=== PATIENT | female | born 1990 | race Caucasian/White ===

== ENCOUNTER 2016-12-26 22:29 | Emergency (ER) | payer SELFPAY ==
[~2016-12-26] VITALS: Ht 149.9 cm; Wt 67.4 kg
[2016-12-26 22:50] VITALS: Ht 149.9 cm; Wt 67.4 kg
[2016-12-26] MEDS ORDERED: ACETAMINOPHEN 500 MG TAB PO STA (23:23)
--- NOTE | 2016-12-26 23:27 | ERD ---
ER Documentation Chief Complaint Date/Time DATE: 12/26/16 TIME: 23:25 Chief Complaint pt reports spotting that started today. HPI This is a a 26-year-old female who presents to the emergency department today complaining of vaginal spotting that started today. Patient states she is 6 weeks . States she has some lower abdominal pain. Denies any nausea or vomiting fevers or chills ROS All systems reviewed and are negative except as per history of present illness. Medications Home Meds Active Scripts Acetaminophen* (Tylophen*) 500 Mg Capsule, 1 CAP PO Q6H Y for PAIN AND OR ELEVATED TEMP, #30 CAP Prov:LISA CHRIS PA-C 12/27/16 PMhx/Soc Medical and Surgical Hx: pt denies Medical Hx, pt denies Surgical Hx Hx Alcohol Use: No Hx Substance Use: No Hx Tobacco Use: No Smoking Status: Never smoker Physical Exam Vitals Vital Signs Date Time Temp Pulse Resp B/P Pulse Ox O2 Delivery O2 Flow Rate FiO2 12/26/16 22:50 98.1 96 18 120/68 98 Physical Exam Const: No acute distress Head: Atraumatic Eyes: Normal Conjunctiva ENT: Normal External Ears, Nose and Mouth. Neck: Full range of motion..~ No meningismus. Resp: Clear to auscultation bilaterally Cardio: Regular rate and rhythm, no murmurs Abd: Soft, mild suprapubic tenderness non distended. Normal bowel sounds. No right lower quadrant pain. No left lower quadrant pain. No tenderness to McBurney's. Skin: No petechiae or rashes Neur: Awake and alert Psych: Normal Mood and Affect Result Diagram: 12/26/16 7686 Results 24 hrs Laboratory Tests Test 12/26/16 23:52 12/26/16 23:55 Urine Bacteria OCCASIONAL Urine Bilirubin NEGATIVE Urine Clarity CLEAR Urine Color LT. YELLOW Urine Glucose NEGATIVE% Urine Hemoglobin 2+ Urine Ketones NEGATIVE Urine Leukocyte Esterase NEGATIVE Urine Microscopic RBC 5-10/HPF Urine Microscopic WBC 0-2/HPF Urine Nitrite NEGATIVE Urine Specific Stout 1.020 Urine Squamous Epithelial Cells FEW Urine Total Protein NEGATIVE Urine Urobilinogen 1.0 E.U./dL Urine pH 6.5 Basophils # 0.110^3/ul Basophils % 0.5% Beta HCG, Quantitative 3921.1mIU/ml Eosinophils # 0.210^3/ul Eosinophils % 1.4% Hematocrit 39.3% Hemoglobin 13.7g/dl Lymphocytes # 3.910^3/ul Lymphocytes % 33.5% Mean Corpuscular Hemoglobin 31.7pg Mean Corpuscular Hemoglobin Concent 34.7g/dl Mean Corpuscular Volume 91.2fl Mean Platelet Volume 9.7fl Monocytes # 0.710^3/ul Monocytes % 5.9% Neutrophils # 6.810^3/ul Neutrophils % 58.7% Nucleated Red Blood Cells # 0.010^3/ul Nucleated Red Blood Cells % 0.0/100WBC Platelet Count 83715^3/UL Red Blood Count 4.3110^6/ul Red Cell Distribution Width 13.1% White Blood Count 11.610^3/ul Current Medications Medications (Trade) Dose Ordered Sig/Miriam Route PRN Reason Start Time Stop Time Status Last Admin Dose Admin Acetaminophen (Tylenol Tab) 500 mg ONCE STAT PO 12/26/16 23:23 12/26/16 23:25 DC 12/27/16 00:21 DIAGNOSTIC IMAGING REPORT Patient: VIANEY WONG : 1990 Age: 26 Sex: F MR #: [id number] DOS: 12/27/16 0000 Ordering MD: LISA CHRIS PA-C Location: [facility] Room/Bed: PROCEDURE: Obstetrical ultrasound. CLINICAL INDICATION: Vaginal bleeding. TECHNIQUE: Multiple sonographic images of the pelvis were obtained utilizing an endovaginal technique. The images were reviewed on a PACS workstation. COMPARISON: 12/26/2016. FINDINGS: No abnormal uterine mass is identified. The endometrial echo complex is homogeneous and measures 19.2 mm. No intrauterine is identified. There is no evidence for free fluid. The right ovary has a normal echotexture and measures 2.7 x 1.8 x 2.1 cm. The left ovary has a normal echotexture and measures 2.8 x 1.8 x 2.0 cm. There is normal flow to both ovaries. No adnexal masses are identified. IMPRESSION: Thickened endometrium with no intrauterine identified. Clinical beta- hCG correlation and follow-up is recommended. .Mandeep Haddad MD, MD Date Time Electronically viewed and signed by .Mandeep Haddad MD, MD on 12/27/2016 00:58 .T/ CC: LISA CHRIS PA-C Procedures/MDM This is a 26-year-old female who presents to the emergency department today complaining of vaginal spotting that started today. Patient indicates she is 6 weeks . Given the patient's complaints and did obtain a full OB workup Laboratory work shows a very mildly elevated white blood cell count. She is not anemic. Platelets are within normal limits. UA is negative for infection Rh status O+ Beta quant hCG 3 9-1.1 Ultrasound shows a thickened endometrium with no intrauterine identified. There is normal flow to both ovaries. There is no evidence for free fluid. There is no abnormal uterine mass. Clinical beta hCG correlation and follow-up is recommended. Patient symptoms at this time is consistent with early failed versus early normal versus ectopic . I have explained this to the patient. I have explained to her that she needs to get a repeat beta quant in 48 hours. Patient does not have an appointment with her [facility] for her first appointment until January and therefore I have explained to the patient that she may return here to the emergency department for a repeat beta quant. I have explained to the patient she may continue to have vaginal spotting. Patient was given Tylenol here in the emergency department. I will give her a prescription for home. At this time the patient is stable for discharge and outpatient management. Patient should follow up with their PCP in the next 1-2 days. They may return to the emergency department sooner for any persistent or worsening of symptoms. Patient understood and agreed with the plan. Departure Diagnosis: Primary Impression: Vaginal bleeding before 22 weeks gestation Condition: Fair LISA CHRIS PA-C Dec 26, 2016 23:26
[2016-12-27 00:15] LABS: BASOPHIL # 0.1 10^3/ul (0.0-0.1); BASOPHILS % 0.5 % (0.0-2.0); EOSINOPHILS # 0.2 10^3/ul (0.0-0.5); EOSINOPHILS % 1.4 % (0.0-7.0); HEMATOCRIT 39.3 % (37.0-47.0); HEMOGLOBIN 13.7 g/dl (12.0-16.0); LYMPHOCYTES # 3.9 10^3/ul (0.8-2.9); LYMPHOCYTES % 33.5 % (15.0-51.0); MEAN CORPUSCULAR HEMOGLOBIN 31.7 pg (29.0-33.0); MEAN CORPUSCULAR HGB CONC 34.7 g/dl (32.0-37.0); MEAN CORPUSCULAR VOLUME 91.2 fl (82.0-101.0); MEAN PLATELET VOLUME 9.7 fl (7.4-10.4); MONOCYTE # 0.7 10^3/ul (0.3-0.9); MONOCYTES % 5.9 % (0.0-11.0); NEUTROPHIL # 6.8 10^3/ul (1.6-7.5); NEUTROPHILS % 58.7 % (39.0-77.0); PLATELET COUNT 250 10^3/UL (140-440); RED BLOOD COUNT 4.31 10^6/ul (4.20-5.40); RED CELL DISTRIBUTION WIDTH 13.1 % (11.5-14.5); UNCORRECTED WBC 11.6 10^3/ul (4.8-10.8); WHITE BLOOD COUNT 11.6 10^3/ul (4.8-10.8)
[2016-12-27 00:18] LABS: CONDITION 1
--- NOTE | 2016-12-27 00:18 | RADRPT ---
PROCEDURE: US OB. CLINICAL INDICATION: Positive , vaginal bleeding TECHNIQUE: Transabdominal views of the pelvis are available for review. COMPARISON: No prior studies are available for comparison. FINDINGS: Uterus: Grossly normal. There is no evidence of myometrial mass. Endometrial cavity: No intrauterine is identified. Right ovary / adnexa: The ovary is not visualized. There is no evidence of adnexal mass Left ovary/adnexa: Ovarian size is normal measuring 2.9 x 2 x 1.8 cm with no evidence of ovarian or adnexal mass. Normal blood flow seen on Doppler interrogation. Cul-de-sac: No evidence of free fluid. RPTAT:HJJR IMPRESSION: Limited transabdominal exam without intrauterine identified. Ectopic is not exc luded, but there are no suspicious findings at this time. Correlation with serial beta HCGs is wilmer huston with followup as clinically indicated. Physician Angeles Date Time Electronically viewed and signed by Physician Angeles on 12/27/2016 00:18 JR/
[2016-12-27 00:35] LABS: ADD UMIC YES; URINE BILIRUBIN (Dip) NEGATIVE (NEGATIVE); URINE BLOOD (Dip) 2+ (NEGATIVE); URINE COLOR LT. YELLOW (YELLOW); URINE GLUCOSE (Dip) NEGATIVE (NEGATIVE); URINE KETONES (Dip) NEGATIVE (NEGATIVE); URINE LEUKOCYTE ESTERASE (Dip) NEGATIVE (NEGATIVE); URINE NITRITE (Dip) NEGATIVE (NEGATIVE); URINE TOTAL PROTEIN (Dip) NEGATIVE (NEGATIVE); URINE UROBILINOGEN (Dip) 1.0 E.U./dL (0.1-1.0)
[2016-12-27 00:47] LABS: BACTERIA,URINE OCCASIONAL; SQUAMOUS EPITHELIAL CELL,UR FEW
--- NOTE | 2016-12-27 00:58 | RADRPT ---
PROCEDURE: Obstetrical ultrasound. CLINICAL INDICATION: Vaginal bleeding. TECHNIQUE: Multiple sonographic images of the pelvis were obtained utilizing an endovaginal techn ique. The images were reviewed on a PACS workstation. COMPARISON: 12/26/2016. FINDINGS: No abnormal uterine mass is identified. The endometrial echo complex is homogeneous and measures 19 .2 mm. No intrauterine is identified. There is no evidence for free fluid. The right ovary has a normal echotexture and measures 2.7 x 1. 8 x 2.1 cm. The left ovary has a normal echotexture and measures 2.8 x 1.8 x 2.0 cm. There is norm al flow to both ovaries. No adnexal masses are identified. IMPRESSION: Thickened endometrium with no intrauterine identified. Clinical beta-hCG correlation and follow-up is recommended. .Mandeep Haddad MD, MD Date Time Electronically viewed and signed by .Mandeep Haddad MD, MD on 12/27/2016 00:58 .T/
[2016-12-27] MEDS ORDERED: ACET500C5 PO (01:41)
[2016-12-27 01:56] VITALS: BP 114/74; PULSE 73; RESP 17; TEMP 98.4
== END 2016-12-27 01:56 | disposition home or self-care (01) ==
LOC: FTE 22:29
DX: O20.9 Hemorrhage in early pregnancy, unspecified (principal); Z3A.01 Less than 8 weeks gestation of pregnancy
CPT/HCPCS: 36415; 76801; 76817; 81001; 81003; 84702; 85025; 86900; 86901

== ENCOUNTER 2017-01-05 14:18 | Inpatient (IN) | payer SELFPAY ==
[~2017-01-05] VITALS: Ht 149.9 cm; Wt 66.0 kg
[~2017-01-05 14:18] MED LIST: ACET500C5 PO
[2017-01-05 14:28] VITALS: Ht 149.9 cm; Wt 66.0 kg
[2017-01-05 15:14] LABS: ADD SCAN DIFF NO
[2017-01-05 15:17] LABS: BASOPHILS % 0.6 % (0.0-2.0); EOSINOPHILS # 0.4 10^3/ul (0.0-0.5); EOSINOPHILS % 5.5 % (0.0-7.0); HEMATOCRIT 38.6 % (37.0-47.0); HEMOGLOBIN 12.8 g/dl (12.0-16.0); LYMPHOCYTES # 1.8 10^3/ul (0.8-2.9); LYMPHOCYTES % 28.3 % (15.0-51.0); MEAN CORPUSCULAR HEMOGLOBIN 30.8 pg (29.0-33.0); MEAN CORPUSCULAR HGB CONC 33.2 g/dl (32.0-37.0); MEAN CORPUSCULAR VOLUME 92.8 fl (82.0-101.0); MEAN PLATELET VOLUME 11.3 fl (7.4-10.4); MONOCYTE # 0.9 10^3/ul (0.3-0.9); NEUTROPHIL # 3.3 10^3/ul (1.6-7.5); NEUTROPHILS % 51.4 % (39.0-77.0); PLATELET COUNT 226 10^3/UL (140-415); RED BLOOD COUNT 4.16 10^6/ul (4.20-5.40); RED CELL DISTRIBUTION WIDTH 12.8 % (11.5-14.5); WHITE BLOOD COUNT 6.4 10^3/ul (4.8-10.8)
[2017-01-05 15:19] LABS: ADD UMIC YES; URINE BILIRUBIN (Dip) NEGATIVE (NEGATIVE); URINE BLOOD (Dip) 2+ (NEGATIVE); URINE COLOR LT. YELLOW (YELLOW); URINE GLUCOSE (Dip) NEGATIVE (NEGATIVE); URINE KETONES (Dip) NEGATIVE (NEGATIVE); URINE LEUKOCYTE ESTERASE (Dip) NEGATIVE (NEGATIVE); URINE NITRITE (Dip) NEGATIVE (NEGATIVE); URINE TOTAL PROTEIN (Dip) NEGATIVE (NEGATIVE); URINE UROBILINOGEN (Dip) 1.0 E.U./dL (0.1-1.0)
[2017-01-05 15:27] LABS: SQUAMOUS EPITHELIAL CELL,UR MODERATE; URINE RBCS 0-2 /HPF (0)
[2017-01-05 15:28] LABS: BACTERIA,URINE RARE
--- NOTE | 2017-01-05 15:31 | RADRPT ---
PROCEDURE: US Pelvis. CLINICAL INDICATION: vaginal bleeding TECHNIQUE: Multiple sonographic images of the pelvis were obtained utilizing a transabdominal and endovaginal technique. The images were reviewed on a PACS workstation. COMPARISON: 12/27/2016 FINDINGS: The uterus is normal in size and demonstrates a normal appearance of the myometrium. The endometria l stripe is heterogeneous in appearance and has the thickness of 20 mm. No intrauterine gestation is noted. The ovaries are normal in size and echogenicity. Normal Doppler flow is identified in both ovaries. The right ovary measures 3.1 x 2.0 x 2.2 cm. The left ovary measures 3.0 x 2.2 x 2.4 cm. There is a trace amount of free fluid in the cul-de-sac. RPTAT: AA IMPRESSION: No intrauterine gestation visualized. Thickened and heterogeneous endometrium. Differential diagnosis includes early , missed or ectopic . Follow-up ultrasound and HCG levels is recommended. .Doc Miner MD, MD Date Time Electronically viewed and signed by .Doc Miner MD, on 01/05/2017 15:31 .S/
--- NOTE | 2017-01-05 17:25 | ERD ---
ER Documentation Chief Complaint Date/Time DATE: 01/05/17 TIME: 17:17 Chief Complaint SENT HERE FOR FURTHER EVALUATION OF ULTRASOUND R/O ECTOPIC PREG, VB HPI This is a 26-year-old female with last menstrual period dating to November 14, 2016 presenting to the emergency room complaining of vaginal bleeding for 8 days. Patient has been evaluated by this facility on December 26, 2016 for same complaint. Patient states that she has mild bleeding. She denies any pelvic pain, fevers, nausea, vomiting, diarrhea. She denies any dysuria. Patient followed up at [facility] yesterday on January 04 in which she was referred here to rule out an ectopic , report states empty uterus and no sac seen. Patient states that the was unplanned however it is desired. ROS All systems reviewed and are negative except as per history of present illness. Medications Home Meds Active Scripts Acetaminophen* (Tylophen*) 500 Mg Capsule, 1 CAP PO Q6H Y for PAIN AND OR ELEVATED TEMP, #30 CAP Prov:LISA CHRIS PA-C 12/27/16 PMhx/Soc Medical and Surgical Hx: pt denies Medical Hx, pt denies Surgical Hx Hx Alcohol Use: No Hx Substance Use: No Hx Tobacco Use: No Physical Exam Vitals Vital Signs Date Time Temp Pulse Resp B/P Pulse Ox O2 Delivery O2 Flow Rate FiO2 01/05/17 14:28 98.8 105 18 119/64 97 Physical Exam General: well-developed/well-nourished, in no apparent distress, non-toxic appearing HENT: NC/AT, bilateral tympanic membrane is normal with good cone of light, nares patent, oropharynx clear without exudates Eyes: Conjunctiva normal, PERRLA, EOMI Neck: Supple, no lymphadenopathy Pulm: CTA bilaterally, no rales, rhonchi, or wheezing heard CV: Normal S1S2 GI: Soft, non-distended, normal bowel sounds, nontender in all quadrants, negative rosvings, negative bliss's Back: No midline tenderness, no masses, No CVAT Ext: No clubbing, cyanosis, or edema Neuro: Alert and Orientated, gait normal Skin: Intact, normal turgor Psych: Normal mood and mentation Result Diagram: 01/05/17 1510 Results 24 hrs Laboratory Tests Test 01/05/17 15:00 01/05/17 15:10 Urine Bacteria RARE Urine Bilirubin NEGATIVE Urine Clarity CLEAR Urine Color LT. YELLOW Urine Glucose NEGATIVE% Urine Hemoglobin 2+ Urine Ketones NEGATIVE Urine Leukocyte Esterase NEGATIVE Urine Microscopic RBC 0-2/HPF Urine Microscopic WBC 0-2/HPF Urine Nitrite NEGATIVE Urine Specific Becker 1.020 Urine Squamous Epithelial Cells MODERATE Urine Total Protein NEGATIVE Urine Urobilinogen 1.0 E.U./dL Urine pH 8.0 Basophils # 0.010^3/ul Basophils % 0.6% Beta HCG, Quantitative 94013.0mIU/ml Eosinophils # 0.410^3/ul Eosinophils % 5.5% Hematocrit 38.6% Hemoglobin 12.8g/dl Lymphocytes # 1.810^3/ul Lymphocytes % 28.3% Mean Corpuscular Hemoglobin 30.8pg Mean Corpuscular Hemoglobin Concent 33.2g/dl Mean Corpuscular Volume 92.8fl Mean Platelet Volume 11.3fl Monocytes # 0.910^3/ul Monocytes % 14.0% Neutrophils # 3.310^3/ul Neutrophils % 51.4% Nucleated Red Blood Cells # 0.010^3/ul Nucleated Red Blood Cells % 0.0/100WBC Platelet Count 92179^3/UL Red Blood Count 4.1610^6/ul Red Cell Distribution Width 12.8% White Blood Count 6.410^3/ul Procedures/MDM This is a 26-year-old female with last menstrual period dating to November 14, 2016 presenting to the emergency room complaining of mild vaginal bleeding without any pelvic pain for 8 days. Patient has been evaluated by this facility on December 26, 2016 for same complaint. . Patient followed up at [facility] yesterday on January 04 in which she was referred here to rule out an ectopic , report states empty uterus and no sac seen. Patient states that the was unplanned however it is desired. On December 26 when she was evaluated at this facility and ultrasound showed a thickened endometrium with no intrauterine identified. There is normal flow to both ovaries. There is no evidence for free fluid. There is no abnormal uterine mass. Clinical beta hCG correlation and follow-up is recommended. Patient's beta-hCG level at this time was 3921 Today, lab work was done. Lab work was drawn. CBC did not show any evidence of leukocytosis or anemia. UA did not show any evidence of hemoglobin or urinary tract infection. Beta hCG level is 15,976 OB ultrasound stated: No intrauterine gestation visualized. Thickened and heterogeneous endometrium. Differential diagnosis includes early , missed or ectopic . Follow-up ultrasound and HCG levels is recommended. I have consulted the OB labor is consumer credit counselor regarding this patient due to her elevated beta hCG level without any intrauterine gestation visualized. There is a concern that patient may have an ectopic or a completed . Dr. Man evaluated the patient and will admit the patient for further ventilation and management with D&C vs. exploration of the fallopian tubes for possible ectopic . Patient is hemodynamically stable for transfer to OB med/surg floor. Departure Diagnosis: Primary Impression: Vaginal bleeding Condition: Serious NATAN HOBBS PA-C Jan 05, 2017 17:25
--- NOTE | 2017-01-05 19:33 | HP ---
Date/Time of Note Date/Time of Note DATE: 01/05/17 TIME: 19:32 Assessment/Plan VTE Prophylaxis VTE Prophylaxis Intervention: ambulation Assessment/Plan Chief Complaint/Hosp Course Spotting in early Elevated hCG. Nondiagnostic ultrasound Ultrasound reviewed showed heterogeneous endometrium with no evidence of adnexal mass or free fluid in the pelvis. Cannot rule out early miscarriage versus ectopic I have discussed with the patient by using air export agent in the emergency room about the diagnosis. Due to risk of undiagnosed ectopic , recommended to have D&C. Consider sending intrauterine tissue for pathology as well as follow-up with the ECG within 24 hours after D&C. If no tissue obtained by suction D&C , may consider diagnostic laparoscopy in the OR. Risk and benefit of procedure including risk of infection, bleeding, damage to surrounding structures including bowel and bladder, risk of scar , risk of conversion to open as well as risk of salpingostomy versus salpingectomy discussed with the patient and risk of blood transfusion, including but not limited to blood borne infection including HIV, hepatitis B and C and transfusion reaction discussed with the patient in detail. Informed consent was obtained. All questions were answered to the patient's best satisfaction. Plan to proceed with D&C and possible diagnostic laparoscopy. Problems: Assessment/Plan N.p.o. IV fluids D5 LR at 125 cc/h CBC type and screen Schedule for the OR HPI/ROS Admit Date/Time Admit Date/Time Hx of Present Illness 26-year-old with amenorrhea for 7 weeks and 3 days presented to emergency room after she had a clinic visit today for rule out ectopic . , LMP November 14, 2016. Patient reports having vaginal light spotting for the last 2 weeks. She presented about a week ago to emergency room and was noted to have hCG in 3000 level with nondiagnostic ultrasound with no evidence of IUP or adnexal mass. She was hemodynamically stable. She was subsequently discharged home. She had a follow-up visit today with her OB clinic, had ultrasound that did not show any evidence of IUP. Patient was referred to emergency room for evaluation. Patient currently denies any abdominal pain pelvic pain dizziness lightheadedness shortness of breath or chest pain or any other symptoms. was unplanned. Reports that she was using condoms for contraception and she failed. Her serum hCG today is 15,000 range. Ultrasound today did not show any evidence of IUP and shows heterogeneous endometrium with no evidence of adnexal mass or free fluid in the pelvis , suspicious for miscarriage versus ectopic . ROS Subjective hx not possible: other Constitutional: no complaints Eyes: no complaints ENT: no complaints Respiratory: no complaints Cardiovascular: no complaints Gastrointestinal: no complaints Genitourinary: no complaints Musculoskeletal: no complaints Skin: no complaints Neurologic: no complaints Endocrine: no complaints Lymphatic: no complaints Psychological: no complaints Immunologic: no complaints PMH/Family/Social Past Medical History Past medical history: Negative Past surgical history: Negative Allergy history: NKDA Social history: Denies smoking, drinking alcohol or using any drugs. 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 Last Pap smear 6 months ago and per patient was normal. Patient denies any history of STD or PID in the past. Medical History: no pertinent history Past Surgical History Past Surgical Hx: no surgical history Family History Significant Family History: no pertinent family hx Social History Alcohol Use: none Smoking Status: Never smoker Drug Use: none Exam/Review of Systems Vital Signs Vitals Vital Signs Date Time Temp Pulse Resp B/P Pulse Ox O2 Delivery O2 Flow Rate FiO2 01/05/17 14:28 98.8 105 18 119/64 97 Exam Constitutional: alert, oriented, well developed Psych: nl mood/affect, no complaints Head: atraumatic, normocephalic Eyes: EOMI, nl conjunctiva, nl lids ENMT: nl external ears & nose, nl lips & teeth, nl nasal mucosa & septum Neck: non-tender, supple Respiratory: clear to auscultation, normal air movement Cardiovascular: nl pulses, regular rate and rhythm Gastrointestinal: nl liver, spleen, non-tender, other (Abdomen nontender, no rebound tenderness, no guarding no rigidity. ), soft Genitourinary - Female: nl adnexae, nl external genitalia, other (Speculum examination: Cervix looks normal. No blood in the vault. No cervical motion tenderness. No abnormal vaginal discharge. Bimanual examination: No fullness or tenderness in adnexa. No uterine tenderness.) Musculoskeletal: nl extremities to inspection, nl gait and stance Extremities: normal pulses Neurological: CHRISTMAS BELL RINGER II-XII intact, nl mental status, nl speech, nl strength Skin: nl turgor Labs Result Diagram: 01/05/17 1510 Procedures Procedures PROCEDURE: US Pelvis. CLINICAL INDICATION: vaginal bleeding TECHNIQUE: Multiple sonographic images of the pelvis were obtained utilizing a transabdominal and endovaginal technique. The images were reviewed on a PACS workstation. COMPARISON: 12/27/2016 FINDINGS: The uterus is normal in size and demonstrates a normal appearance of the myometrium. The endometrial stripe is heterogeneous in appearance and has the thickness of 20 mm. No intrauterine gestation is noted. The ovaries are normal in size and echogenicity. Normal Doppler flow is identified in both ovaries. The right ovary measures 3.1 x 2.0 x 2.2 cm. The left ovary measures 3.0 x 2.2 x 2.4 cm. There is a trace amount of free fluid in the cul-de-sac. RPTAT: AA IMPRESSION: No intrauterine gestation visualized. Thickened and heterogeneous endometrium. Differential diagnosis includes early , missed or ectopic . Follow-up ultrasound and HCG levels is recommended. Hematology - 72 Hrs Test 01/05/17 15:10 Basophils # 0.010^3/ul (0.0-0.1) Basophils % 0.6% (0.0-2.0) Eosinophils # 0.410^3/ul (0.0-0.5) Eosinophils % 5.5% (0.0-7.0) Hematocrit 38.6% (37.0-47.0) Hemoglobin 12.8g/dl (12.0-16.0) Lymphocytes # 1.810^3/ul (0.8-2.9) Lymphocytes % 28.3% (15.0-51.0) Mean Corpuscular Hemoglobin 30.8pg (29.0-33.0) Mean Corpuscular Hemoglobin Concent 33.2g/dl (32.0-37.0) Mean Corpuscular Volume 92.8fl (82.0-101.0) Mean Platelet Volume 11.3fl (7.4-10.4) H Monocytes # 0.910^3/ul (0.3-0.9) Monocytes % 14.0% (0.0-11.0) H Neutrophils # 3.310^3/ul (1.6-7.5) Neutrophils % 51.4% (39.0-77.0) Nucleated Red Blood Cells # 0.010^3/ul (0.0-0.0) Nucleated Red Blood Cells % 0.0/100WBC (0.0-0.0) Platelet Count 82426^3/UL (140-415) Red Blood Count 4.1610^6/ul (4.20-5.40) L Red Cell Distribution Width 12.8% (11.5-14.5) White Blood Count 6.410^3/ul (4.8-10.8) # Chemistry Test 01/05/17 15:10 Beta HCG, Quantitative 75804.0mIU/ml KEMAL HAMILTON MD Jan 05, 2017 19:33
[2017-01-05 19:48] VITALS: TEMP 98.2
[2017-01-05] MEDS: LACTATED RINGER'S 1,000 ML IV SCH (19:54)
[2017-01-05] MEDS ORDERED: BUPIVACAINE 0.5%/EPI (SDV) 30 ML INJ ONE (20:14)
[2017-01-05 21:40] VITALS: BP 122/79; PULSE 89; RESP 17
[2017-01-06] MEDS: LACTATED RINGER'S 1,000 ML IV SCH (04:23)
--- NOTE | 2017-01-06 08:29 | DS ---
Date/Time of Note Date/Time of Note DATE: 01/06/17 TIME: 08:08 Discharge Summary Admission/Discharge Info Admit Date/Time Jan at 21:46 Hospital visit and discharge This patient is a 26 years old 1 para 0 with last menstrual period of November 14, 2016,. Has been mentioned in the text she had positive test and no evidence of intrauterine she was sent to the emergency room a week ago for further evaluation. A week ago her beta hCG was 3000 ultrasound no evidence of intrauterine or adnexal mass she was asymptomatic. She was sent home on that day and again was sent to the emergency room for further follow-up today her beta-hCG is over 15,000 she has no complaint of pain she does have slight vaginal bloody discharge no abdominal pain fainting dizziness or any other symptoms of possible blood loss and a ruptured ectopic ultrasound 2 days mostly similar to the previous one normal-sized uterus except for some slightly thickened endometrium the size of the uterus is the same both ovaries are normal not enlarged no adnexal mass. On physical examination she is comfortable no complaint of pain Abdomen is soft no tenderness no rebound tenderness no organomegaly . On pelvic examination vulva vagina is normal she has a slight vaginal bleeding the size of the uterus is about normal nose cervical motion tenderness no adnexal mass Impression; possible early loss however the chance of ectopic could not be 100% rule out. Patient totally disagree with with the D& C actually she requested to be discharged home I again explained to him the possibility including miscarriage and ectopic all the possible complications of and short-term due to were explained to her again Despite that she would like to go home I asked her please to return to the emergency room in 4 days in 3-4 days for follow-up or if there is any evidence of heavy bleeding or abdominal pain to return to the hospital immediately. Discharge Date/Time Final Diagnosis Reserved, Stable Patient Condition: Stable Hx of Present Illness 26-year-old with amenorrhea for 7 weeks and 3 days presented to emergency room after she had a clinic visit today for rule out ectopic . , LMP November 14, 2016. Patient reports having vaginal light spotting for the last 2 weeks. She presented about a week ago to emergency room and was noted to have hCG in 3000 level with nondiagnostic ultrasound with no evidence of IUP or adnexal mass. She was hemodynamically stable. She was subsequently discharged home. She had a follow-up visit today with her OB clinic, had ultrasound that did not show any evidence of IUP. Patient was referred to emergency room for evaluation. Patient currently denies any abdominal pain pelvic pain dizziness lightheadedness shortness of breath or chest pain or any other symptoms. was unplanned. Reports that she was using condoms for contraception and she failed. Her serum hCG today is 15,000 range. Ultrasound today did not show any evidence of IUP and shows heterogeneous endometrium with no evidence of adnexal mass or free fluid in the pelvis , suspicious for miscarriage versus ectopic . Hospital Course Spotting in early Elevated hCG. Nondiagnostic ultrasound Ultrasound reviewed showed heterogeneous endometrium with no evidence of adnexal mass or free fluid in the pelvis. Cannot rule out early miscarriage versus ectopic I have discussed with the patient by using rn ante partum in the emergency room about the diagnosis. Due to risk of undiagnosed ectopic , recommended to have D&C. Consider sending intrauterine tissue for pathology as well as follow-up with the ECG within 24 hours after D&C. If no tissue obtained by suction D&C , may consider diagnostic laparoscopy in the OR. Risk and benefit of procedure including risk of infection, bleeding, damage to surrounding structures including bowel and bladder, risk of scar , risk of conversion to open as well as risk of salpingostomy versus salpingectomy discussed with the patient and risk of blood transfusion, including but not limited to blood borne infection including HIV, hepatitis B and C and transfusion reaction discussed with the patient in detail. Informed consent was obtained. All questions were answered to the patient's best satisfaction. Plan to proceed with D&C and possible diagnostic laparoscopy. Patient refused to undergo D & C. As I indicated she is leaving the hospital now and will return in 3 days for a repeat ultrasound and beta-hCG in emergency room or her physician's office. Once more I explained to the dangers of ectopic reviewed with her through auto rebuilder as well as her who speaks Chinese . The understand all of the risks involved and still want to go home and to be followed in the emergency room or to her physician's clinic Home Meds Active Scripts Acetaminophen* (Tylophen*) 500 Mg Capsule, 1 CAP PO Q6H Y for PAIN AND OR ELEVATED TEMP, #30 CAP Prov:LISA CHRIS PA-C 2/20/17 Pending Labs Laboratory Tests Test 01/05/17 15:00 01/05/17 15:10 01/06/17 04:47 Urine Bacteria RARE Urine Bilirubin NEGATIVE (NEGATIVE) Urine Clarity CLEAR (CLEAR) Urine Color LT. YELLOW (YELLOW) Urine Glucose NEGATIVE% (NEGATIVE) Urine Hemoglobin 2+ (NEGATIVE) Urine Ketones NEGATIVE (NEGATIVE) Urine Leukocyte Esterase NEGATIVE (NEGATIVE) Urine Microscopic RBC 0-2/HPF (0) Urine Microscopic WBC 0-2/HPF (0) Urine Nitrite NEGATIVE (NEGATIVE) Urine Specific [place] 1.020 (1.003-1.030) Urine Squamous Epithelial Cells MODERATE Urine Total Protein NEGATIVE (NEGATIVE) Urine Urobilinogen 1.0 E.U./dL (0.1-1.0) Urine pH 8.0 (5.0-9.0) Basophils # 0.010^3/ul (0.0-0.1) Basophils % 0.6% (0.0-2.0) Beta HCG, Quantitative 83082.0mIU/ml 42264.0mIU/ml Eosinophils # 0.410^3/ul (0.0-0.5) Eosinophils % 5.5% (0.0-7.0) Hematocrit 38.6% (37.0-47.0) Hemoglobin 12.8g/dl (12.0-16.0) Lymphocytes # 1.810^3/ul (0.8-2.9) Lymphocytes % 28.3% (15.0-51.0) Mean Corpuscular Hemoglobin 30.8pg (29.0-33.0) Mean Corpuscular Hemoglobin Concent 33.2g/dl (32.0-37.0) Mean Corpuscular Volume 92.8fl (82.0-101.0) Mean Platelet Volume 11.3fl (7.4-10.4) Monocytes # 0.910^3/ul (0.3-0.9) Monocytes % 14.0% (0.0-11.0) Neutrophils # 3.310^3/ul (1.6-7.5) Neutrophils % 51.4% (39.0-77.0) Nucleated Red Blood Cells # 0.010^3/ul (0.0-0.0) Nucleated Red Blood Cells % 0.0/100WBC (0.0-0.0) Platelet Count 32037^3/UL (140-415) Red Blood Count 4.1610^6/ul (4.20-5.40) Red Cell Distribution Width 12.8% (11.5-14.5) White Blood Count 6.410^3/ul (4.8-10.8) ARTURO ZELAYA MD Jan 06, 2017 08:19
[2017-01-06 08:39] VITALS: BP 130/76; RESP 18
== END 2017-01-06 14:30 | disposition home or self-care (01) | DRG 782 ==
LOC: FTE 14:18 → MS1 20:21
PROVIDERS: ADMIT Obstetrics & Gynecology Obstetrics; ATTEND Obstetrics & Gynecology Obstetrics
DX: O26.851 Spotting complicating pregnancy, first trimester (principal); Z3A.01 Less than 8 weeks gestation of pregnancy
CPT/HCPCS: 36415; 76801; 76817; 81001; 81003; 84702; 85025; 86850; 86900; 86901; 96360; 96361; J7120

== ENCOUNTER 2017-01-07 16:27 | Emergency (ER) | payer SELFPAY ==
[~2017-01-07] VITALS: Ht 160 cm; Wt 70.0 kg
[2017-01-07 16:42] VITALS: Ht 160 cm; Wt 70.0 kg
== END 2017-01-07 16:50 | disposition left against medical advice (07) ==
LOC: E/R 16:27
DX: Z53.21 Procedure and treatment not carried out due to patient leaving prior to being seen by health care provider (principal)